=== PATIENT | male | born 1995 | race African-American/Black ===

== ENCOUNTER 2018-01-10 14:41 | Inpatient (IN) | payer OTHER ==
[2018-01-10 18:42] VITALS: BMI 27.6
--- NOTE | 2018-01-10 19:25 | HP ---
Admission [facility] Chief Complaint: Here for rehab. Denies current withdrawal symptoms. Allergies/Adverse Reactions: Allergies Allergy/AdvReac Type Severity Reaction Status Date / Time No Known Allergies Allergy Verified 01/10/18 18:29 History of Present Illness: 22 yom w/ hx of Percocet use since age 18, THC since age 12, Xanax since age 18. Hx. Asthma last exacerbation over 10 years ago. - Ebola screening Have you traveled outside of the country in the last 21 days: No Have you had contact with anyone from an Ebola affected area: No Have you been sick,other than usual withdrawal symptoms: No Do you have a fever: No - Review of Systems Constitutional: No Symptoms Reported EENT: reports: No Symptoms Reported Respiratory: reports: Other (Hx. Asthma. Last exacerbation approx 10 years ago.) Cardiac: reports: No Symptoms Reported GI: reports: Poor Appetite (Loss of appetite x months. Denies recent weight loss ) : reports: No Symptoms Reported Musculoskeletal: reports: No Symptoms Reported Integumentary: reports: No Symptoms Reported Neuro: reports: No Symptoms reported Endocrine: reports: No Symptoms Reported Hematology: reports: No Symptoms Reported Psychiatric: reports: Orientated x3, other (States hx. of Bipolar disorder. Denies medications for years.) Patient History - Patient Medical History Hx Anemia: No Hx Asthma: Yes (No recent exacerbation) Hx Chronic Obstructive Pulmonary Disease (COPD): No Hx Cancer: No Hx Cardiac Disorders: No Hx Congestive Heart Failure: No Hx Hypertension: No Hx Hypercholesterolemia: No Hx Pacemaker: No HX Cerebrovascular Accident: No Hx Seizures: No Hx Dementia: No Hx Diabetes: No Hx Gastrointestinal Disorders: No Hx Liver Disease: No Hx Genitourinary Disorders: No Hx Sexually Transmitted Disorders: No Hx Renal Disease (ESRD): No Hx Thyroid Disease: No Hx Human Immunodeficiency Virus (HIV): No (Hx. Negative ) Hx Hepatitis C: No Hx Depression: No Hx Suicide Attempt: No (Denies suicide or violent ideation) Hx Bipolar Disorder: Yes (Denies medications. Denies mood swings. ) Hx Schizophrenia: No - Patient Surgical History Past Surgical History: No Hx Neurologic Surgery: No Hx Cataract Extraction: No Hx Cardiac Surgery: No Hx Lung Surgery: No Hx Breast Surgery: No Hx Breast Biopsy: No Hx Abdominal Surgery: No Hx Appendectomy: No Hx Cholecystectomy: No Hx Genitourinary Surgery: No Hx Orthopedic Surgery: No Anesthesia Reaction: No - PPD History Previous Implant?: Yes Documented Results: Negative w/o proof PPD to be Administered?: Yes - Reproductive History Patient is a Female of Child Bearing Age (11 -55 yrs old): No (Male) - Smoking Cessation Smoking history: Current some day smoker Have you smoked in the past 12 months: Yes Aproximately how many cigarettes per day: 1 Hx Chewing Tobacco Use: No Initiated information on smoking cessation: Yes 'Breaking Loose' booklet given: 01/10/18 - Substance & Tx. History Hx Alcohol Use: No Hx Substance Use: Yes Substance Use Type: Marijuana, Opiates, Tranquilizers Hx Substance Use Treatment: Yes (One in-patient rehab treatment approx 4 years ago ) - Substances Abused Marijuana/Hashish Route: Smoking Frequency: Daily Amount used: $40 Age of first use: 12 Date of Last Use: 01/10/18 percocet Route: Oral Frequency: 3-6 times per week Amount used: 2 pills Age of first use: 18 Date of Last Use: 01/10/18 Alprazolam (Xanax) Route: Oral Frequency: 3-6 times per week Amount used: 2-3 mg Age of first use: 18 Date of Last Use: 01/06/18 (Urine tox negative for BZO) Family Disease History - Family Disease History Family Disease History: Diabetes: Mother, Heart Disease: Grandparent (Related to muscle disease), Respiratory: Mother, Brother, Sister Admission Physical Exam [facility] - Vital Signs Vital Signs: Vital Signs - 24 hr 01/10/18 18:24 Temperature 98.7 F Pulse Rate 48 L Respiratory 18 Rate Blood Pressure 128/73 - Physical General Appearance: Yes: Within Normal Limits HEENTM: Yes: EOMI, Hearing grossly Normal, Normocephalic, Normal Voice, JOSE Respiratory: Yes: Lungs Clear, Normal Breath Sounds Neck: Yes: No masses,lesions,Nodules, Supple, Trachea in good position Breast: Yes: Breast Exam Deferred Cardiology: Yes: Regular Rhythm, Regular Rate, S1, S2 Abdominal: Yes: Normal Bowel Sounds, Non Tender, Flat, Soft Genitourinary: Yes: Within Normal Limits Musculoskeletal: Yes: Within Normal Limits Extremities: Yes: Within Normal Limits Neurological: Yes: Fully Oriented, Alert, Motor Strength 5/5, Normal Response Integumentary: Yes: Within Normal Limits Lymphatic: Yes: Within Normal Limits - Diagnostic (1) Cannabis dependence Current Visit: Yes Status: Chronic (2) Benzodiazepine dependence Current Visit: Yes Status: Chronic (3) Opiate dependence Current Visit: Yes Status: Chronic (4) Nicotine abuse Current Visit: Yes Status: Acute Cleared for Admission [facility] - Detox or Rehab [facility] Level of Care: Observation Bed Claeared for Rehab Admission: Yes (opiates, cannabis) [facility] Breath Alcohol Content Breath Alcohol Content: 0 Urine Drug Screen - Results Drug Screen Negative: Yes Urine Drug Screen Results: THC-Marijuana, OXY-Oxycodone Inpatient Rehab Admission - Initial Determination Are CD services needed?: Yes Free of communicable disease: Yes Not in need of hospitalization: Yes - Rehab Admission Criteria Previous failed treatment: Yes Poor recovery environment: Yes Comorbidities: No Lacks judgement: Yes Patient is meeting Inpatient Rehab admission criteria:: Yes
[2018-01-10] MEDS ORDERED: MENTHOL/PHENOL 1 EACH UD MM PRN (19:46)
[2018-01-10] MEDS ORDERED: guaiFENesin/D-METHORPHAN HB 10 ML UNIT-DOSE CUPS PO PRN (19:46)
[2018-01-10] MEDS ORDERED: ACETAMINOPHEN 325 MG TABLET (FP) PO PRN (19:46)
[2018-01-10] MEDS ORDERED: LOPERAMIDE HCL 2 MG CAPSULE PO PRN (19:46)
[2018-01-10] MEDS ORDERED: P-EPHED 60MG/TRIPROLIDI 2.5MG TABLET PO PRN (19:46)
[2018-01-10] MEDS ORDERED: IBUPROFEN 400 MG TABLET (FP) PO PRN (19:46)
[2018-01-10] MEDS ORDERED: MAGNESIUM CITRATE 300 ML BOTTLE PO PRN (19:46)
[2018-01-10] MEDS ORDERED: MAGNESIUM HYDROX 2400MG/30ML ORAL SUSPENSION 30 ML CUP PO PRN (19:46)
[2018-01-10] MEDS ORDERED: MAG HYDROX/AL HYDROX/SIMETH 30 ML UNIT-DOSE CUP PO PRN (19:46)
[2018-01-10] MEDS ORDERED: NICOTINE POLACRILEX 2 MG GUM BUC PRN (20:00)
[2018-01-10 21:57] VITALS: TEMP 97.6
[2018-01-10] MEDS ORDERED: MELATONIN 5 MG TABLETS PO PRN (22:00)
[2018-01-10] MEDS ORDERED: THIAMINE HCL 100 MG TABLET (FP) PO SCH (22:00)
[2018-01-10] MEDS ORDERED: TUBERCULIN PPD 5 TU/0.1ML VIAL ID ONE (22:42)
[2018-01-11] MEDS ORDERED: PRENATAL VITAMINS W/ FOLIC ACID TABLET (FP) PO SCH (10:00)
[2018-01-11 10:56] LABS: URINE APPEARANCE CLEAR; URINE BILIRUBIN NEGATIVE (<2.0 mg/dL); URINE BLOOD NEGATIVE (NEGATIVE); URINE COLOR LTYELLOW; URINE GLUCOSE (UA) NEGATIVE (NEGATIVE); URINE KETONE NEGATIVE (NEGATIVE); URINE LEUK ESTERASE NEGATIVE (NEGATIVE); URINE NITRITE NEGATIVE (NEGATIVE); URINE PROTEIN NEGATIVE (NEGATIVE); URINE UROBILINOGEN NEGATIVE mg/dL (0.2-1.0)
[2018-01-11 11:26] VITALS: BP 135/77; PULSE 63
--- NOTE | 2018-01-11 11:35 | EKG ---
Test Reason : Blood Pressure : / mmHG Vent. Rate : 059 BPM Atrial Rate : 059 BPM P-R Int : 176 ms QRS Dur : 094 ms QT Int : 416 ms P-R-T Axes : 021 071 048 degrees QTc Int : 411 ms SINUS BRADYCARDIA OTHERWISE NORMAL ECG NO PREVIOUS ECGS AVAILABLE Confirmed by JA RICHMOND MD ([id number]) on 01/11/2018 11:35:22 AM Referred By: Confirmed By:JA RICHMOND MD
[2018-01-11 15:14] LABS: HEMOGLOBIN 14.4 GM/dL (11.7-16.9); MCH 30.4 pg (25.7-33.7); MCHC 34.3 g/dl (32.0-35.9); MEAN CELL VOLUME 88.7 fl (80-96); MEAN PLT VOLUME 8.2 fl (7.5-11.1); PLATELET COUNT 421 K/MM3 (134-434); RBC 4.74 M/mm3 (4.00-5.60); WHITE BLOOD COUNT 5.4 K/mm3 (4.0-10.0)
[2018-01-11 15:19] LABS: ANION GAP 3 (8-16); BLOOD UREA NITROGEN 10 mg/dL (7-18); CHLORIDE 107 mmol/L (98-107); CO2 28 mmol/L (21-32); GLUCOSE,RANDOM 95 mg/dL (74-106); POTASSIUM 4.5 mmol/L (3.5-5.1); SODIUM 138 mmol/L (136-145)
[2018-01-11 15:23] LABS: ALK PHOS 65 U/L (45-117); BILIRUBIN,TOTAL 0.3 mg/dL (0.2-1.0); CREATININE 0.9 mg/dL (0.7-1.3); SGOT/AST 35 U/L (15-37); SGPT/ALT 30 U/L (12-78); TOT PROT 7.3 g/dl (6.4-8.2)
--- NOTE | 2018-01-11 20:16 | PN ---
S Progress Note Note: Psychiatric nurse practitioner note: Call received by RN stating patient is leaving AMA. Pt. encouraged to stay and complete rehab but patient continues to refuse and is focued on leaving AMA.
== END 2018-01-11 21:00 | disposition left against medical advice (07) | DRG 770 ==
LOC: YASAS 14:41 → Y5N 20:38
PROVIDERS: ADMIT Psychiatry & Neurology Psychiatry; ATTEND Psychiatry & Neurology Psychiatry
PROC: HZ42ZZZ Group Counseling for Substance Abuse Treatment, Cognitive-Behavioral (ICD-10-PCS; principal; 2018-01-10)
DX: F11.20 Opioid dependence, uncomplicated (principal); F13.20 Sedative, hypnotic or anxiolytic dependence, uncomplicated; F12.20 Cannabis dependence, uncomplicated; F17.210 Nicotine dependence, cigarettes, uncomplicated; J45.909 Unspecified asthma, uncomplicated
CPT/HCPCS: 36415; 80053; 81003; 85027; 93005; 93010